=== PATIENT | male | born 1975 | race Caucasian/White ===

== ENCOUNTER 2023-07-24 20:13 | Emergency (ER) | payer OTHER ==
[2023-07-24 20:17] VITALS: BP 175/100; PULSE 78; RESP 16; TEMP 98.3; BMI 39.1
[2023-07-24] MEDS ORDERED: DIPHTH,PERTUSS(ACELL),TET 0.5 ML DISP.SYRIN IM ONE ×2 (20:57→21:21)
[2023-07-24] MEDS ORDERED: ACETAMINOPHEN 325 MG TABLET (FP) PO ONE (20:58)
[2023-07-24] MEDS ORDERED: ACETAMINOPHEN 325 MG TABLET (FP) ONE (21:21)
[2023-07-24 21:24] LABS: BASO % 0.4 % (0-2.0); EOS % 1.5 % (0-4.5); HEMATOCRIT 41.4 % (35.4-49); HEMOGLOBIN 14.4 GM/dL (11.7-16.9); LYMPH % 15.6 % (8-40); MCH 30.3 pg (25.7-33.7); MCHC 34.7 g/dl (32.0-35.9); MEAN CELL VOLUME 87.3 fl (80-96); MEAN PLT VOLUME 7.8 fl (7.5-11.1); MONO % 5.1 % (3.8-10.2); NEUT % 77.4 % (42.8-82.8); PLATELET COUNT 174 10^3/uL (134-434); RBC 4.75 M/mm3 (4.00-5.60); RDW 13.4 % (11.9-15.9); WHITE BLOOD COUNT 10.6 K/mm3 (4.0-10.0)
[2023-07-24 21:48] LABS: POTASSIUM 4.2 mmol/L (3.5-5.1)
[2023-07-24 21:50] LABS: ALBUMIN 4.2 g/dl (3.4-5.0); CALCIUM 9.5 mg/dL (8.5-10.1)
[2023-07-24 21:54] LABS: CREATININE 1.1 mg/dL (0.55-1.3)
[2023-07-24 21:55] LABS: BILIRUBIN,TOTAL 0.4 mg/dL (0.2-1); TOT PROT 7.8 g/dl (6.4-8.2)
[2023-07-24] MEDS ORDERED: DEXTROSE 5% IVPB ONE (22:26)
[2023-07-24] MEDS ORDERED: CEFUROXIME SODIUM IVPB ONE (22:26)
[2023-07-24] MEDS ORDERED: WATER IVPB ONE (22:26)
[2023-07-24] MEDS ORDERED: BACITRACIN 0.9 GM PACKET TP ONE (22:32)
[2023-07-24] MEDS ORDERED: BACITRACIN 0.9 GM PACKET ONE (22:37)
[2023-07-24] MEDS ORDERED: CEFTRIAXONE 1,000 MG in DEXTROSE 5%-WATER - 50 ML IVPB ONE (22:54)
[2023-07-24] MEDS ORDERED: BACITRACIN ZINC 15 GM TUBE TOPICAL OINTMENT TP ONE (23:02)
[2023-07-24] MEDS ORDERED: BACITRACIN ZINC 15 GM TUBE TOPICAL OINTMENT ONE (23:05)
[2023-07-24] MEDS ORDERED: CEFTRIAXONE 1 GM/50 ML BAG ONE (23:20)
[2023-07-25] MEDS ORDERED: BACITRACIN/POLYMYXIN B SULFATE 15 GM TUBE TP SCH (10:00)
== END 2023-07-24 23:56 | disposition home or self-care (01) ==
LOC: JER 20:13
PROC: 3E03329 Introduction of Other Anti-infective into Peripheral Vein, Percutaneous Approach (ICD-10-PCS; principal; 2023-07-24)
PROC: 3E0234Z Introduction of Serum, Toxoid and Vaccine into Muscle, Percutaneous Approach (ICD-10-PCS; 2023-07-24)
DX: S61.402A Unspecified open wound of left hand, initial encounter (principal); W45.0XXA Nail entering through skin, initial encounter; Y92.009 Unspecified place in unspecified non-institutional (private) residence as the place of occurrence of the external cause
CPT/HCPCS: 36415; 73110-TC-LT-FY; 73130-TC-LT-FY; 80053; 85025; 90471; 90715; 93005; 93010; 94640; 99285-25